=== PATIENT | female | born 2000 | race Caucasian/White ===

== ENCOUNTER 2020-04-22 16:13 | Emergency (ER) | payer OTHER ==
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
[2020-04-22] MEDS ORDERED: diazePAM 2 MG TAB PO ONE (16:36)
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
[2020-04-22 18:19] VITALS: BP 108/69; TEMP 98; O2SAT 96
== END 2020-04-22 17:45 | disposition home or self-care (01) ==
LOC: ER 16:13
DX: S13.4XXA Sprain of ligaments of cervical spine, initial encounter (principal); M62.830 Muscle spasm of back; V49.49XA Driver injured in collision with other motor vehicles in traffic accident, initial encounter; Y92.410 Unspecified street and highway as the place of occurrence of the external cause